=== PATIENT | female | born 1985 | race Caucasian/White ===

== ENCOUNTER 2020-04-27 05:55 | Inpatient (IN) ==
[2020-04-27] MEDS ORDERED: OXYTOCIN 30 UNITS/500 ML BAG IV PRN ×2 (06:20→07:19)
[2020-04-27] MEDS ORDERED: LACTATED RINGER'S 1,000 ML IV PRN (06:20)
[2020-04-27] MEDS ORDERED: OXYTOCIN 10 UNITS/ML VIAL ONE (06:22)
--- NOTE | 2020-04-27 06:43 | Progress Note ---
Date of Service April 27, 2020 Subjective Pt arrived unannounced seen at [facility] today, was SROM and left AMA VE' //+1 FHR; CAT! Ctx; 2-3 hx of drug use on subutex admit for delivery Results & Data ([facility]) Vital Signs (Past 12 Hours) Vital Signs Pulse BP 04/27/20 06:02 96 H 144/85 H
[2020-04-27] MEDS ORDERED: METHYLERGONOVINE MALEATE 0.2 MG/ML AMP ONE (07:06)
[2020-04-27] MEDS ORDERED: miSOPROStoL 200 MCG TAB ONE (07:06)
[2020-04-27] MEDS ORDERED: LIDOCAINE 1% LOCAL 20 ML VIAL ONE (07:08)
[2020-04-27] MEDS ORDERED: bisacodyL 10 MG SUPP PR PRN (07:19)
[2020-04-27] MEDS ORDERED: DIPHTHERIA/TETANUS/PERTUSSIS 0.5 ML SYR/VIAL IM ONE (07:19)
[2020-04-27] MEDS ORDERED: BENZOCAINE 20% AER SPR 82.5 GM CAN EXT PRN (07:19)
[2020-04-27] MEDS ORDERED: HYDROCORTISONE ACETATE 25 MG SUPP PR PRN (07:19)
[2020-04-27] MEDS ORDERED: METHYLERGONOVINE MALEATE 0.2 MG/ML AMP IM ONE (07:19)
[2020-04-27] MEDS ORDERED: SUPERCREAM 0.870% 15 GM JAR EXT PRN (07:19)
[2020-04-27] MEDS ORDERED: ACETAMINOPHEN 325 MG TAB PO PRN (07:19)
[2020-04-27] MEDS ORDERED: OXYTOCIN 10 UNITS/ML VIAL IM ONE (07:19)
[2020-04-27] MEDS ORDERED: miSOPROStoL 200 MCG TAB PR ONE (07:19)
[2020-04-27 07:30] LABS: Base Excess Cord Arterial Bld -3.6 mEq/L (-9-1.8); CO2 Cord Arterial Blood 50 mmHg (39.1-73.5); HCO3 Cord Arterial Blood 24 mmol/L (19.7-28.5); PO2 Cord Arterial Blood 26 mmHg (4.1-31.7); pH Cord Arterial Blood 7.29 (7.1-7.38)
[2020-04-27 07:34] LABS: Cord Venous Blood HCO3 22 mmol/L (18.4-26.8); Cord Venous Blood PCO2 37 mmHg (30.4-57.2); Cord Venous Blood PO2 31 mmHg (14.1-43.3); Cord Venous Blood pH 7.38 (7.20-7.44)
[2020-04-27] MEDS: IBUPROFEN 600 MG TAB PO PRN ×2 (08:28→17:28)
[2020-04-27 08:37] LABS: Hematocrit (blood only) 34.5 % (37-47); Hemoglobin 11.9 g/dL (12.0-16.0); Mean Corpuscular Hemoglobin 31.9 pg (25-34); Mean Corpuscular Hgb Conc 34.5 g/dL (32-36); Mean Corpuscular Volume 92.5 fL (80-100); Mean Platelet Volume 11.3 fL (7.4-10.4); Platelet Count 162 K/uL (130-400); RDW Coefficient of Variation 13.2 % (11.5-14.5); RDW Standard Deviation 44.3 fL (36.4-46.3); Red Blood Count 3.73 M/uL (4.2-5.4); White Blood Count 14.68 K/uL (4.8-10.8)
--- NOTE | 2020-04-27 08:46 | Delivery Summary ---
DATE OF OPERATION: 04/27/2020 The patient presented unannounced to labor and delivery, she was fully dilated with 0 station and rupture of membranes at 1:00 on 04/26/2020. Patient had been seen that day at the office and sent to labor and delivery at [facility]. She arrived on labor and delivery and later on signed out AMA, even though she was ruptured. She presented here as stated unannounced. The patient has history of drug use. The IV team could not obtain IV access. She pushed and delivered a live in left occiput anterior presentation with right hand compound presentation. There was no nuchal cord. Infant was delivered. Cord was clamped and cut and handed over to the pediatric team. Cord blood and cord gases obtained. Placenta is spontaneously delivered. Inspection of the perineum shows no laceration or tears. The patient is given IM Methergine and Pitocin as well as Cytotec for hemostasis. All instruments were removed from the vagina including sponges and retractors. There was good hemostasis. ESTIMATED BLOOD LOSS: 400 mL. Baby and mother are doing well in recovery. I attest to the content of the Intraoperative Record and any orders documented therein. Any exception s are noted below.
[2020-04-27] MEDS: DOCUSATE SODIUM 100 MG CAP PO SCH ×2 (09:01→20:45)
[2020-04-27] MEDS: PRENATAL VITAMIN 1 TAB PO SCH (09:01)
[2020-04-27] MEDS ORDERED: buprenorphine HCL 2 MG SUBL SL SCH (11:30)
[2020-04-27] MEDS ORDERED: NICOTINE POLACRILEX 2 MG GUM MT PRN (14:12)
[2020-04-27] MEDS: NICOTINE 21 MG/24 HR TDSY TD SCH (15:24)
[2020-04-27] MEDS: buprenorphine HCL 2 MG SUBL SL SCH (17:27)
[2020-04-28] MEDS ORDERED: buprenorphine HCL 8 MG SUBL SL SCH (07:30)
--- NOTE | 2020-04-28 08:59 | Obstetrical Progress Note ---
Date of Service April 28, 2020 Assessment & Plan Admission and Anticipated Discharge Date Admission Date: April 27, 2020 Subjective Patient is seen and examined. She feels well, no complaints. Ambulating without dizziness Voiding without difficulty Tolerating regular diet with out N&V Bleeding is minimal No fever/ chills/ CP/ SOB/ N&V/ Leg pain Breast feeding without problems Vital Signs Temp Pulse Resp BP Pulse Ox 04/28/20 03:00 36.6 C 75 17 129/79 95 04/27/20 23:50 36.8 C 87 16 136/83 96 Lab Results 04/27/20 04/27/20 04/27/20 Range/Units 06:26 06:26 07:02 WBC (4.8-10.8) K/uL RBC (4.2-5.4) M/uL Hgb (12.0-16.0) g/dL Hct (37-47) % MCV (80-100) fL MCH (25-34) pg MCHC (32-36) g/dL RDW Std Deviation (36.4-46.3) fL RDW Coeff of Emani (11.5-14.5) % Plt Count (130-400) K/uL MPV (7.4-10.4) fL Cord ABG pH 7.29 (7.1-7.38) Cord ABG pCO2 50 (39.1-73.5) mmHg Cord ABG pO2 26 (4.1-31.7) mmHg Cord ABG HCO3 24 (19.7-28.5) mmol/L Cord ABG Base Excess -3.6 (-9-1.8) mEq/L Cord ABG O2 Sat 64.0 H (<60) % Cord VBG pH (7.20-7.44) Cord VBG pCO2 (30.4-57.2) mmHg Cord VBG pO2 (14.1-43.3) mmHg Cord VBG HCO3 (18.4-26.8) mmol/L Cord VBG Base Excess (-7.7-1.9) mEq/L Cord VBG O2 Sat (<68) % Barometric Pressure 736.4 mm/Hg Blood Gas Comments [facility] SARS-CoV-2, RNA, NAAT NEGATIVE (NEGATIVE) 04/27/20 04/27/20 Range/Units 07:02 08:19 WBC 14.68 H (4.8-10.8) K/uL RBC 3.73 L (4.2-5.4) M/uL Hgb 11.9 L (12.0-16.0) g/dL Hct 34.5 L (37-47) % MCV 92.5 (80-100) fL MCH 31.9 (25-34) pg MCHC 34.5 (32-36) g/dL RDW Std Deviation 44.3 (36.4-46.3) fL RDW Coeff of Emani 13.2 (11.5-14.5) % Plt Count 162 (130-400) K/uL MPV 11.3 H (7.4-10.4) fL Cord ABG pH (7.1-7.38) Cord ABG pCO2 (39.1-73.5) mmHg Cord ABG pO2 (4.1-31.7) mmHg Cord ABG HCO3 (19.7-28.5) mmol/L Cord ABG Base Excess (-9-1.8) mEq/L Cord ABG O2 Sat (<60) % Cord VBG pH 7.38 (7.20-7.44) Cord VBG pCO2 37 (30.4-57.2) mmHg Cord VBG pO2 31 (14.1-43.3) mmHg Cord VBG HCO3 22 (18.4-26.8) mmol/L Cord VBG Base Excess -3.0 (-7.7-1.9) mEq/L Cord VBG O2 Sat 76.0 H (<68) % Barometric Pressure 736.4 mm/Hg Blood Gas Comments [facility] COVID-19 Eval Order SARS-CoV-2, RNA, NAAT (NEGATIVE) PE: General: Alert, orientedx3, NAD Abd: soft, NT, fundus firm, below Umbilicus Perineum intact, Lochia rubra minimal Ext; NT, no edema AP: 35 yo s/p , ppd# 1 VSS Afebrile doing well Continue routine care All questions were answered D/C home tomorrow Results & Data ([facility]) Vital Signs (Past 12 Hours) Vital Signs Temp Pulse Resp BP Pulse Ox 04/28/20 03:00 36.6 C 75 17 129/79 95 04/27/20 23:50 36.8 C 87 16 136/83 96
[2020-04-28] MEDS: DOCUSATE SODIUM 100 MG CAP PO SCH ×2 (09:07→20:43)
[2020-04-28] MEDS: PRENATAL VITAMIN 1 TAB PO SCH (09:07)
[2020-04-28] MEDS: NICOTINE 21 MG/24 HR TDSY TD SCH (09:10)
[2020-04-28 09:29] LABS: Hematocrit (blood only) 32.1 % (37-47); Hemoglobin 11.1 g/dL (12.0-16.0); Mean Corpuscular Hemoglobin 31.9 pg (25-34); Mean Corpuscular Hgb Conc 34.6 g/dL (32-36); Mean Corpuscular Volume 92.2 fL (80-100); Mean Platelet Volume 11.7 fL (7.4-10.4); Platelet Count 168 K/uL (130-400); RDW Coefficient of Variation 13.2 % (11.5-14.5); RDW Standard Deviation 44.1 fL (36.4-46.3); Red Blood Count 3.48 M/uL (4.2-5.4); White Blood Count 9.86 K/uL (4.8-10.8)
[2020-04-28] MEDS: buprenorphine HCL 2 MG SUBL SL SCH (16:45)
[2020-04-28] MEDS: IBUPROFEN 600 MG TAB PO PRN (19:38)
[2020-04-28] MEDS ORDERED: buprenorphine HCL 8 MG SUBL SL ONE (20:00)
[2020-04-28] MEDS ORDERED: bisacodyL 5 MG TABEC PO SCH (20:00)
[2020-04-29 06:39] LABS: Hepatitis C Vira RNA (Log) PCR 4.11 Log IU/mL (NOT DETECTED)
[2020-04-29 06:44] LABS: Hematocrit (blood only) 29.8 % (37-47)
[2020-04-29] MEDS: DOCUSATE SODIUM 100 MG CAP PO SCH (07:46)
[2020-04-29] MEDS: buprenorphine HCL 8 MG SUBL SL SCH ×2 (07:47→13:51)
[2020-04-29] MEDS: NICOTINE 21 MG/24 HR TDSY TD SCH (07:48)
[2020-04-29] MEDS: PRENATAL VITAMIN 1 TAB PO SCH (07:50)
--- NOTE | 2020-04-29 11:09 | Obstetrical Progress Note ---
Date of Service April 29, 2020 Assessment & Plan Admission and Anticipated Discharge Date Admission Date: April 27, 2020 Subjective Patient is seen and examined. She feels well, no complaints. Ambulating without dizziness Voiding without difficulty Tolerating regular diet with out N&V Bleeding is minimal No fever/ chills/ CP/ SOB/ N&V/ Leg pain Breast feeding without problems Vital Signs Temp Pulse Pulse Resp BP Pulse Ox 04/29/20 10:14 36.6 C 86 83 16 111/70 97 04/29/20 07:19 36.6 C 86 16 111/70 97 04/28/20 23:20 36.6 C 83 16 133/92 97 04/28/20 19:30 36.7 C 82 16 109/74 97 04/28/20 15:20 36.6 C 77 20 125/82 Intake and Output 04/28/20 04/29/20 04/29/20 22:59 06:59 14:59 Other: Weight 76.657 kg Patient Weight 04/30/20 06:59 Weight 76.657 kg Lab Results 04/27/20 04/27/20 04/27/20 Range/Units 06:26 06:26 07:02 WBC (4.8-10.8) K/uL RBC (4.2-5.4) M/uL Hgb (12.0-16.0) g/dL Hct (37-47) % MCV (80-100) fL MCH (25-34) pg MCHC (32-36) g/dL RDW Std Deviation (36.4-46.3) fL RDW Coeff of Emani (11.5-14.5) % Plt Count (130-400) K/uL MPV (7.4-10.4) fL Cord ABG pH 7.29 (7.1-7.38) Cord ABG pCO2 50 (39.1-73.5) mmHg Cord ABG pO2 26 (4.1-31.7) mmHg Cord ABG HCO3 24 (19.7-28.5) mmol/L Cord ABG Base Excess -3.6 (-9-1.8) mEq/L Cord ABG O2 Sat 64.0 H (<60) % Cord VBG pH (7.20-7.44) Cord VBG pCO2 (30.4-57.2) mmHg Cord VBG pO2 (14.1-43.3) mmHg Cord VBG HCO3 (18.4-26.8) mmol/L Cord VBG Base Excess (-7.7-1.9) mEq/L Cord VBG O2 Sat (<68) % Barometric Pressure 736.4 mm/Hg Blood Gas Comments [facility] COVID-19 Eval [facility] HCV RNA (PCR) IUs/ml (NOT DETECTED) IU/mL HCV RNA PCR log IUs/ml (NOT DETECTED) Log IU/mL SARS-CoV-2, RNA, NAAT NEGATIVE (NEGATIVE) 04/27/20 04/27/20 04/27/20 Range/Units 07:02 08:19 08:19 WBC 14.68 H (4.8-10.8) K/uL RBC 3.73 L (4.2-5.4) M/uL Hgb 11.9 L (12.0-16.0) g/dL Hct 34.5 L (37-47) % MCV 92.5 (80-100) fL MCH 31.9 (25-34) pg MCHC 34.5 (32-36) g/dL RDW Std Deviation 44.3 (36.4-46.3) fL RDW Coeff of Emani 13.2 (11.5-14.5) % Plt Count 162 (130-400) K/uL MPV 11.3 H (7.4-10.4) fL Cord ABG pH (7.1-7.38) Cord ABG pCO2 (39.1-73.5) mmHg Cord ABG pO2 (4.1-31.7) mmHg Cord ABG HCO3 (19.7-28.5) mmol/L Cord ABG Base Excess (-9-1.8) mEq/L Cord ABG O2 Sat (<60) % Cord VBG pH 7.38 (7.20-7.44) Cord VBG pCO2 37 (30.4-57.2) mmHg Cord VBG pO2 31 (14.1-43.3) mmHg Cord VBG HCO3 22 (18.4-26.8) mmol/L Cord VBG Base Excess -3.0 (-7.7-1.9) mEq/L Cord VBG O2 Sat 76.0 H (<68) % Barometric Pressure 736.4 mm/Hg Blood Gas Comments [facility] COVID-19 Eval Order HCV RNA (PCR) IUs/ml 90446 H (NOT DETECTED) IU/mL HCV RNA PCR log IUs/ml 4.11 H (NOT DETECTED) Log IU/mL SARS-CoV-2, RNA, NAAT (NEGATIVE) 04/28/20 04/29/20 Range/Units 08:36 06:27 WBC 9.86 (4.8-10.8) K/uL RBC 3.48 L (4.2-5.4) M/uL Hgb 11.1 L 10.0 L (12.0-16.0) g/dL Hct 32.1 L 29.8 L (37-47) % MCV 92.2 (80-100) fL MCH 31.9 (25-34) pg MCHC 34.6 (32-36) g/dL RDW Std Deviation 44.1 (36.4-46.3) fL RDW Coeff of Emani 13.2 (11.5-14.5) % Plt Count 168 (130-400) K/uL MPV 11.7 H (7.4-10.4) fL Cord ABG pH (7.1-7.38) Cord ABG pCO2 (39.1-73.5) mmHg Cord ABG pO2 (4.1-31.7) mmHg Cord ABG HCO3 (19.7-28.5) mmol/L Cord ABG Base Excess (-9-1.8) mEq/L Cord ABG O2 Sat (<60) % Cord VBG pH (7.20-7.44) Cord VBG pCO2 (30.4-57.2) mmHg Cord VBG pO2 (14.1-43.3) mmHg Cord VBG HCO3 (18.4-26.8) mmol/L Cord VBG Base Excess (-7.7-1.9) mEq/L Cord VBG O2 Sat (<68) % Barometric Pressure mm/Hg Blood Gas Comments COVID-19 Eval Order HCV RNA (PCR) IUs/ml (NOT DETECTED) IU/mL HCV RNA PCR log IUs/ml (NOT DETECTED) Log IU/mL SARS-CoV-2, RNA, NAAT (NEGATIVE) PE: General: Alert, orientedx3, NAD Abd: soft, NT, fundus firm, below Umbilicus Perineum intact, Lochia rubra minimal Ext; NT, no edema AP: 35 yo s/p , ppd# 2 VSS Afebrile doing well Continue routine care All questions were answered Discussed when to call D/C home , f/u in office Results & Data ([facility]) Vital Signs (Past 12 Hours) Vital Signs Temp Pulse Pulse Resp BP Pulse Ox 04/29/20 10:14 36.6 C 86 83 16 111/70 97 04/29/20 07:19 36.6 C 86 16 111/70 97 04/28/20 23:20 36.6 C 83 16 133/92 97
[2020-04-29] MEDS ORDERED: buprenorphine HCL 2 MG SUBL SL SCH (21:00)
--- NOTE | 2020-05-14 07:55 | Coding Query ---
PATHOLOGY To promote full compliance with coding requirements relating to patient care, physician participation is requested in all cases of deputy fire marshal uncertainty. Please assist us with the question(s) below: Please review the Pathology report and please document any relevant diagnosis(es) below: Diagnosis(es): 1) at term 2) Chorioamnionitis Thank you Nora MENDEZ
== END 2020-04-29 13:56 | disposition home or self-care (01) | DRG 805 ==
LOC: OPB 05:55 → 4S1 06:01 → 4S2 11:23
DX: F19.90 Other psychoactive substance use, unspecified, uncomplicated; Z79.899 Other long term (current) drug therapy; Z79.891 Long term (current) use of opiate analgesic; O99.324 Drug use complicating childbirth; O41.1230 Chorioamnionitis, third trimester, not applicable or unspecified; O32.6XX0 Maternal care for compound presentation, not applicable or unspecified; Z37.0 Single live birth; Z3A.38 38 weeks gestation of pregnancy

== ENCOUNTER 2021-07-29 07:08 | Inpatient (IN) ==
[2021-07-29] MEDS ORDERED: OXYTOCIN 30 UNITS/500 ML BAG IV PRN ×3 (07:37→11:10)
[2021-07-29] MEDS ORDERED: fentaNYL citrate 100 MCG/2 ML VIAL ONE (08:05)
[2021-07-29] MEDS ORDERED: SODIUM CHLORIDE 0.9% INJ 10 ML VIAL ONE (08:05)
[2021-07-29] MEDS ORDERED: ePHEDrine sulfate 50 MG/ML AMP ONE (08:05)
[2021-07-29] MEDS ORDERED: BUPIVACAINE 0.25% 30 ML VIAL ONE (08:05)
[2021-07-29] MEDS ORDERED: fentaNYL 2MCG/ML ROPIVACAINE 1.25MG/ML 100 ML BAG EPI ONE (08:06)
--- NOTE | 2021-07-29 08:14 | History & Physical Report ---
Date of Service July 29, 2021 Assessment & Plan (1) complicated by subutex maintenance, antepartum: (2) Chronic hepatitis C affecting , antepartum: (3) with history of miscarriage: (4) Active labor at term: Plan: 36-year-old -0-2-2 at 39 weeks of gestation presenting in active labor, requesting epidural for pain, Vital signs stable afebrile, heart rate reassuring, GBS negative, On Subutex and smoker, Plan to admit, monitor, labs, epidural for pain and anticipate , All questions were answered. Admission and Anticipated Discharge Date Admission Date: July 29, 2021 History of Present Illness Primary Care Provider: NO PCP Patient is an 36-year-old -0-2-2 at 39 weeks of gestation who has been feeling contractions for the last 4 hours. She walked into labor and delivery and requested epidural for pain. She denies leakage of fluid or vaginal bleeding. She reports good movements. She denies fever, chills, chest pain, shortness of breath, headaches, change in her vision. Her has been complicated by, 1. Hepatitis C positive, RNA titer was negative during this , 2. Subutex use during , history of overuse of Percocet, denies any history of other substance or drug use. 3. Smoker, smokes 10 cigarettes/day, 4. Close interval, last baby was on April 2020 5. transfer of care from [facility] physician group, normal labs GBS negative Allergies Allergy/AdvReac Type Severity Reaction Status Date / Time No Known Allergies Allergy Verified 02/07/21 08:49 Home Medications Medication Instructions Recorded Confirmed Type vits no.124-ferrous fum 1 tab PO DAILY@08 #90 tab 04/29/20 02/07/21 Rx 27 mg iron-folic acid 800 mcg tablet ( Vitamin) buprenorphine HCl 8 mg sublingual 20 mg SUBLINGUAL DAILY tab 02/07/21 02/07/21 History tablet Patient History Medical History Breast feeding status of mother Surgical History No significant past surgical history Family History Father Diabetes Mother Hypertension Denies family history of Ovarian cancer Prostate cancer Breast cancer Colorectal cancer Social History Smoking Status: Current every day smoker Tobacco Type: Cigarettes Cigarettes Per Day: 7 per day; Second Hand Exposure: No; Hx Alcohol Use: No Hx Substance Use: Yes Last Used Substance: Hours (ago) Last Used Substance Other:: 0000 04/27/20 Substance Use Type Other:: Subutex Preferred Language: Upper Sorbian Communication Ability: Effective Hearing Ability: Normal Warp Bleaching Vat Tender Required: No Beliefs That Will Affect Care: None marital status: Single marital status details: Allen Prasad (33) [phone] Current Living Situation: Significant Other Current Living Situation Comment: Lives with FOB, 2 cats. 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 History Denies history of STDs, denies herpes, chlamydia, gonorrhea Review of Systems as per Subjective / HPI Physical Exam Constitutional: well developed, well nourished and + acute distress (with contractions only) Gastrointestinal (Abdomen): normal bowel sounds, soft, nontender, no hepatosplenomegaly (Gravid) Genitourinary: normal external appearance OB Exam Abdomen: + vertex Manual OB Exam: + cervical dilation 7 cm, + cervical effacement 90% and + station 0 OB Exam Monitor Tracing: + external uterine monitor used, + category I (Acceleration after scalp stimulation) and + normal FHT variability Results & Data ([facility]) Vital Signs (Past 12 Hours) Vital Signs Temp Pulse Resp BP Pulse Ox 07/29/21 07:26 101 H 98 07/29/21 07:21 94 H 96 07/29/21 07:16 103 H 99 07/29/21 07:14 36.6 C 106 H 20 122/83 98 Laboratory Results Lab Results 07/29/21 Range/Units 07:45 SARS-CoV-2, RNA, NAAT NEGATIVE (NEGATIVE)
[2021-07-29] MEDS: LACTATED RINGER'S 1,000 ML IV PRN ×2 (08:15→09:52)
[2021-07-29 08:40] LABS: Hematocrit (blood only) 35.7 % (37-47); Hemoglobin 12.5 g/dL (12.0-16.0); Mean Corpuscular Hemoglobin 31.6 pg (25-34); Mean Corpuscular Volume 90.4 fL (80-100); Mean Platelet Volume 10.2 fL (7.4-10.4); Platelet Count 271 K/uL (130-400); RDW Coefficient of Variation 13.5 % (11.5-14.5); RDW Standard Deviation 44.6 fL (36.4-46.3); Red Blood Count 3.95 M/uL (4.2-5.4); White Blood Count 15.78 K/uL (4.8-10.8)
[2021-07-29] MEDS ORDERED: NALOXONE HCL 1 MG in SODIUM CHLORIDE 0.9% 1000ML 1,000 ML IV PRN (08:51)
[2021-07-29] MEDS ORDERED: diphenhydrAMINE 50 MG/ML VIAL IV PRN (08:51)
[2021-07-29] MEDS ORDERED: ONDANSETRON INJ 2 MG/ML 2 ML VIAL IV PRN (08:51)
[2021-07-29] MEDS ORDERED: NALBUPHINE HCL INJ 10 MG/ML AMP IV PRN (08:51)
[2021-07-29] MEDS ORDERED: NALOXONE HCL 0.4 MG/1 ML VIAL/CARP IV PRN (08:51)
[2021-07-29] MEDS ORDERED: fentaNYL 2MCG/ML ROPIVACAINE 1.25MG/ML 100 ML BAG EPI PRN (08:51)
[2021-07-29] MEDS ORDERED: ePHEDrine sulfate 50 MG/ML AMP IV PRN (08:51)
--- NOTE | 2021-07-29 09:05 | Anesthesiology Consultation ---
Date of Service July 29, 2021 Assessment & Plan Chart Review Chart Review: Patient NOT seen in Pre Admission Testing and Acceptable Risk for Labor Epidural Consults Requested none ASA ASA3 Proposed Anesthesia Anesthesia Type: Labor Epidural and CSE Risk / Benefits Reviewed With: PT / POA / Parent / Guardian, Accepts Plan and Informed Consent Obtained History Height/Weight Height: 5 ft 3 in Weight: 79.832 kg Allergies Allergy/AdvReac Type Severity Reaction Status Date / Time No Known Allergies Allergy Verified 02/07/21 08:49 Medications Home Medications Medication Instructions Recorded Confirmed Last Taken vits no.124-ferrous fum 1 tab PO DAILY@08 #90 tab 04/29/20 02/07/21 Unknown 27 mg iron-folic acid 800 mcg tablet ( Vitamin) buprenorphine HCl 8 mg sublingual 20 mg SUBLINGUAL DAILY tab 02/07/21 02/07/21 Unknown tablet NPO Date Last Intake of Fluids: 07/29/21 Time Last Intake of Fluids: 03:00 Date Last Intake of Solids: 07/28/21 Time Last Intake of Solids: 23:00 Past Medical History Medical History Chronic hepatitis C affecting , antepartum History of substance abuse Smoker Exercise / Class Metabolic Activity II 4-5 Yardwork/Stairs/Walk up hill Past Family History Family History Father Diabetes Mother Hypertension Denies family history of Ovarian cancer Prostate cancer Breast cancer Colorectal cancer Past Surgical History Surgical History No significant past surgical history Past Anesthesia History No Hx of Anesthesia Complications and No Family Hx of Anesthesia Complications History of PONV No Hx of PONV and No Hx of Motion Sickness Social History Smoking Status: Current every day smoker tobacco type: cigarettes Smoking cigarettes per day: 7 per day Hx Alcohol Use: No Hx Substance Use: Yes substance use type: prescription drug Substance Use Type Other:: Subutex Last Used Substance: Hours (ago) Last Used Substance Other:: 0000 04/27/20 Review of Systems no chest pain or sob Physical Exam Vital Signs Last Vital Signs Temp 36.6 C 07/29/21 07:14 Pulse 88 07/29/21 09:02 Resp 20 07/29/21 07:14 BP 122/83 07/29/21 07:14 Pulse Ox 98 07/29/21 09:02 ENMT Mouth: no TMJ abnormality Thyromental Distance: > or= 3.5 Finger Breadths Mallampati Class: II Neck normal visual inspection Respiratory normal respiratory effort Auscultation: lungs clear to auscultation bilaterally Cardiovascular Rate/Rhythm: regular rate and regular rhythm Musculoskeletal Spine: normal cervical ROM Neurologic moves all extremities Psychiatric Orientation: alert and oriented x 3 Testing Laboratory Results 07/29/21 08:14
[2021-07-29 09:06] LABS: BUN Creatinine Ratio 21.4 (10-20); Bilirubin,Total 0.3 mg/dl (0.2-1.0); Calcium 9.3 mg/dl (8.5-10.1); Creatinine Clr Calc Pharmacy 141.6 ml/min; Est GFR (Non-African American) 121.7 ml/min; Potassium 4.1 mmol/L (3.5-5.1)
[2021-07-29 10:24] LABS: Amphetamines+Metham, Urine Neg (Neg); Barbiturates, Urine Neg (Neg); Benzodiazepine, Urine Neg (Neg); Cocaine, Urine Neg (Neg); MDMA (Ecstacy), Urine Neg (Neg); Methadone, Urine Neg (Neg); Opiate, Urine Neg (Neg); Phencyclidine, Urine Neg (Neg)
[2021-07-29] MEDS ORDERED: MINERAL OIL 30 ML UDC ONE (10:29)
[2021-07-29] MEDS ORDERED: MEASLES, MUMPS & RUBELLA VIRUS VIAL SQ ONE (11:10)
[2021-07-29] MEDS ORDERED: ACETAMINOPHEN 325 MG TAB PO PRN (11:10)
[2021-07-29] MEDS ORDERED: BENZOCAINE 20% AER SPR 82.5 GM CAN EXT PRN (11:10)
[2021-07-29] MEDS ORDERED: HYDROCORTISONE ACETATE 25 MG SUPP PR PRN (11:10)
[2021-07-29] MEDS ORDERED: DIPHTHERIA/TETANUS/PERTUSSIS 0.5 ML SYR/VIAL IM ONE (11:10)
[2021-07-29] MEDS ORDERED: bisacodyL 10 MG SUPP PR PRN (11:10)
--- NOTE | 2021-07-29 11:16 | Delivery Summary ---
Vaginal Delivery Summary Date of Service July 29, 2021 Vaginal Delivery Summary Patient was found to be fully dilated and desire to push. She pushed with contractions and deliver the head without difficulty. The shoulders were delivered with minimal traction, baby was handed off to the mother that her mouth and nose were suctioned. Baby was vigorously moving and crying. The cord was clamped times and cut at 1 minute delay. Vagina and perineum were checked for lacerations. There was a small first-degree laceration at the right labia and rest of the vagina and perineum were intact. It was repaired with 3-0 Vicryl on SH needle with [id number] stitch x1. Excellent hemostasis achieved. 2 placenta was found to be in the vagina, delivered spontaneously as intact and complete. Uterus was explored and found to be empty, the lower segment was cleared of all clots and debris's and fundus was firm. EBL was 100 mL. The baby was a viable male infant, Apgars were 8 or 9 and weight was 277 3 g. No complications happened and I was present during whole procedure. The end of the procedure the sponge, needle and instrument count was correct x2.
--- NOTE | 2021-07-29 11:59 | Anesthesia Procedure Note ---
Date of Service July 29, 2021 Anesthesia Post Epidural Note Vital Signs Vital Signs: Temp Pulse Resp BP Pulse Ox 37 C 76 16 125/82 94 07/29/21 08:33 07/29/21 11:46 07/29/21 11:45 07/29/21 11:46 07/29/21 10:53 Notes Mental Status: alert / awake / arousable and participated in evaluation Nausea / Vomiting: adequately controlled Pain: adequately controlled Airway Patency, RR, SpO2: stable & adequate BP & HR: stable & adequate Hydration State: stable & adequate Neuraxial Anesthesia: was administered and sensory block is resolving Anesthetic Complications: no major complications apparent and Pt Satisfied with anesthetic care Epidural: Removed without complications and With tip intact
[2021-07-29] MEDS: IBUPROFEN 600 MG TAB PO PRN ×2 (14:07→20:07)
[2021-07-29] MEDS: buprenorphine HCL 8 MG SUBL SL SCH (14:32)
[2021-07-29] MEDS: NICOTINE 7 MG/24 HR TDSY TD SCH (20:06)
[2021-07-29] MEDS: DOCUSATE SODIUM 100 MG CAP PO SCH (20:07)
[2021-07-29] MEDS: buprenorphine HCL 2 MG SUBL SL SCH (21:04)
[2021-07-30 06:12] LABS: Hematocrit (blood only) 31.5 % (37-47); Hemoglobin 10.8 g/dL (12.0-16.0); Mean Corpuscular Hemoglobin 31.2 pg (25-34); Mean Corpuscular Hgb Conc 34.3 g/dL (32-36); Platelet Count 221 K/uL (130-400); RDW Coefficient of Variation 13.6 % (11.5-14.5); Red Blood Count 3.46 M/uL (4.2-5.4); White Blood Count 9.14 K/uL (4.8-10.8)
[2021-07-30] MEDS: DOCUSATE SODIUM 100 MG CAP PO SCH ×2 (08:51→20:14)
[2021-07-30] MEDS: buprenorphine HCL 8 MG SUBL SL SCH ×2 (08:51→13:13)
[2021-07-30] MEDS: FERROUS SULFATE 325 MG TAB PO SCH (08:51)
[2021-07-30] MEDS: PRENATAL VITAMIN 1 TAB PO SCH (08:51)
[2021-07-30] MEDS: NICOTINE 7 MG/24 HR TDSY TD SCH (08:52)
--- NOTE | 2021-07-30 09:45 | Obstetrical Progress Note ---
Date of Service July 30, 2021 Subjective Ambulation: ambulating normally Voiding: no voiding problems Passing Gas:: Yes Diet Tolerance:: regular diet Lochia:: Small Feeding Type:: breast feeding Current Pain Level(1-10): 0 doing well going to nesting Physical Exam Constitutional WD/WN, vitals as above PE stable Results & Data ([facility]) Vital Signs (Past 12 Hours) Vital Signs Temp Pulse Resp BP Pulse Ox 07/30/21 03:00 36.5 C 77 16 108/69 97 07/29/21 23:00 36.5 C 88 16 107/73 97 Laboratory Results 07/29/21 07/29/21 07/29/21 07:45 08:14 08:14 WBC 15.78 H RBC 3.95 L Hgb 12.5 Hct 35.7 L MCV 90.4 MCH 31.6 MCHC 35.0 RDW Std Deviation 44.6 RDW Coeff of Emani 13.5 Plt Count 271 MPV 10.2 Sodium 131 L Potassium 4.1 Chloride 101 Carbon Dioxide 21 Anion Gap 9 BUN 12 Creatinine 0.56 L Est Cr Clr Drug Dosing 141.6 Est GFR ( Amer) 141.0 Est GFR (Non-Af Amer) 121.7 BUN/Creatinine Ratio 21.4 H Glucose 104 H Calcium 9.3 Total Bilirubin 0.3 AST 15 ALT 10 Alkaline Phosphatase 178 H Total Protein 8.0 Albumin 4.0 Globulin 4.0 Albumin/Globulin Ratio 1.0 Urine Opiates Screen Ur Methadone, Qual Urine Barbiturates Ur Phencyclidine (PCP) U Amphetamin/Meth Scrn MDMA (Ecstasy) Screen U Benzodiazepines Scrn Ur Cocaine Metabolite U Marijuana (THC) Screen SARS-CoV-2, RNA, NAAT NEGATIVE 07/29/21 07/30/21 09:35 05:52 WBC 9.14 RBC 3.46 L Hgb 10.8 L Hct 31.5 L MCV 91.0 MCH 31.2 MCHC 34.3 RDW Std Deviation 45.0 RDW Coeff of Emani 13.6 Plt Count 221 MPV 10.0 Sodium Potassium Chloride Carbon Dioxide Anion Gap BUN Creatinine Est Cr Clr Drug Dosing Est GFR ( Amer) Est GFR (Non-Af Amer) BUN/Creatinine Ratio Glucose Calcium Total Bilirubin AST ALT Alkaline Phosphatase Total Protein Albumin Globulin Albumin/Globulin Ratio Urine Opiates Screen Neg Ur Methadone, Qual Neg Urine Barbiturates Neg Ur Phencyclidine (PCP) Neg U Amphetamin/Meth Scrn Neg MDMA (Ecstasy) Screen Neg U Benzodiazepines Scrn Neg Ur Cocaine Metabolite Neg U Marijuana (THC) Screen Neg SARS-CoV-2, RNA, NAAT
[2021-07-30] MEDS ORDERED: bisacodyL 5 MG TABEC PO SCH (20:00)
[2021-07-30] MEDS: buprenorphine HCL 2 MG SUBL SL SCH (20:15)
[2021-07-31 08:03] LABS: Hematocrit (blood only) 36.2 % (37-47)
[2021-07-31] MEDS: buprenorphine HCL 8 MG SUBL SL SCH ×2 (08:56→11:58)
[2021-07-31] MEDS: PRENATAL VITAMIN 1 TAB PO SCH (08:56)
[2021-07-31] MEDS: FERROUS SULFATE 325 MG TAB PO SCH (08:56)
[2021-07-31] MEDS: DOCUSATE SODIUM 100 MG CAP PO SCH ×2 (08:56→20:51)
[2021-07-31] MEDS: NICOTINE 7 MG/24 HR TDSY TD SCH (08:59)
[2021-07-31] MEDS: buprenorphine HCL 2 MG SUBL SL SCH (20:50)
[2021-07-31] MEDS: IBUPROFEN 600 MG TAB PO PRN (20:51)
[2021-08-02 14:24] LABS: Hepatitis C Vira RNA (Log) PCR <1.18 NOT DETECTED Log IU/mL (NOT DETECTED); Hepatitis C Viral RNA by PCR <15 NOT DETECTED IU/mL (NOT DETECTED)
== END 2021-07-31 23:11 | disposition home or self-care (01) | DRG 806 ==
LOC: OPB 07:08 → 4S1 07:11 → 4E1 15:27